=== PATIENT | female | born 1985 | race Hispanic/Latino ===

== ENCOUNTER 2019-07-16 14:15 | Emergency (ER) | payer OTHER ==
[2019-07-16] MEDS ORDERED: Ondansetron ODT 4 MG TAB ONE (14:31)
[2019-07-16] MEDS ORDERED: Donnatal Elixir 16.2 MG/5 ML UDCUP ONE (14:32)
[2019-07-16] MEDS ORDERED: Lidocaine Viscous Sol 2% 15 ml UD Cup ONE (14:32)
[2019-07-16] MEDS ORDERED: Mag-Al Plus 1200 MG/1200 MG/120 MG/30 ML UDCUP ONE (14:32)
[2019-07-16] MEDS ORDERED: Ketorolac Tromethamine 60 MG/2 ML VIAL ONE (16:07)
--- NOTE | 2019-07-16 16:31 | RAD ---
EXAM: Two views chest PROVIDED CLINICAL HISTORY: Chest pain COMPARISON: None FINDINGS: Cardiac and mediastinal silhouette appears within normal limits. Lungs appear free of significant opa city. No pleural fluid or pneumothorax apparent. IMPRESSION: No evidence for an acute cardiopulmonary process.
== END 2019-07-16 16:50 ==
LOC: MADERS 14:15
DX: K29.00 Acute gastritis without bleeding (principal); R07.89 Other chest pain
CPT/HCPCS: 71046; 93005; 96372; J1885; Q0162